=== PATIENT | male | born 1945 | race Caucasian/White ===

== ENCOUNTER 2023-04-13 06:27 | Day surgery (SDC) | payer MEDICARE, OTHER, SELFPAY ==
[2023-04-13 08:12] VITALS: BMI 26.6
[2023-04-13 08:15] VITALS: BP 103/62
[2023-04-13 08:31] VITALS: BMI 26.6
[2023-04-13 10:37] VITALS: BP 102/56
[2023-04-13 10:45] VITALS: BP 91/55
[2023-04-13 11:00] VITALS: BP 112/63
[2023-04-13 11:15] VITALS: BP 121/57
== END 2023-04-13 11:35 | disposition home or self-care (01) ==
LOC: GI 06:27
PROVIDERS: ATTENDING PHYSICIAN Internal Medicine Gastroenterology
DX: D12.3 Benign neoplasm of transverse colon (principal); D12.4 Benign neoplasm of descending colon; K64.8 Other hemorrhoids; K22.70 Barrett's esophagus without dysplasia; K57.10 Diverticulosis of small intestine without perforation or abscess without bleeding; K31.89 Other diseases of stomach and duodenum; Z86.010 Personal history of colon polyps
CPT/HCPCS: 45385; 45380; 43239; 88305

== ENCOUNTER → 2023-06-05 10:17 | Outpatient (REF) | payer MEDICARE, OTHER, SELFPAY | LOC: DHCBC HW 10:17 | PROVIDERS: ATTENDING PHYSICIAN Internal Medicine Cardiovascular Disease; FAMILY PHYSICIAN Family Medicine | DX: Z95.2 Presence of prosthetic heart valve (principal); I25.5 Ischemic cardiomyopathy | CPT/HCPCS: 93306 ==

== ENCOUNTER 2023-07-24 03:14 | Observation (INO) | payer MEDICARE, OTHER, SELFPAY ==
[2023-07-23 18:33] VITALS: BP 147/98
[2023-07-23 19:04] LABS: % Basophils 0.8 % (0-2); % Eosinophils 0.4 % (0-6); % Immature Granulocytes 0.4 % (0-0.5); % Lymphocytes 28.4 % (20.5-51.1); % Monocytes 13.7 % (1.7-9.3); % Neutrophils 56.3 % (42.2-75.2); Absolute Lymphocytes 1.4 10^3/uL (1.2-3.4); Absolute Monocytes 0.7 10^3/uL (0.1-0.6); Absolute Neutrophils 2.8 10^3/uL (1.4-6.5); Hemoglobin 15.3 g/dL (13.0-18.0); Mean Corp Hgb Conc. 34.8 g/dL (33.0-37.0); Mean Corpuscular Hgb 34.7 pg (27.0-31.0); Mean Corpuscular Volume 99.8 fL (80.0-94.0); Mean Platelet Volume 11.5 fL (7.4-10.4); Nucleated Red Blood Cells % 0 % (-); Platelet Count 134 10^3/uL (130-400); Red Blood Cell Count 4.41 10^6/uL (4.70-6.10); Red Cell Dist. Width 12.9 % (11.5-14.5); White Blood Cell Count 4.9 10^3/uL (4.8-10.8)
[2023-07-23 19:22] LABS: ALT (SGPT) 38 U/L (0-50); AST (SGOT) 69 U/L (17-59); Albumin 4.4 g/dl (3.5-5.0); Alkaline Phosphatase 59 U/L (38-126); Blood Urea Nitrogen 23 mg/dl (9-20); Calcium 9.4 mg/dl (8.4-10.2); Carbon Dioxide 22 mmol/L (22-30); Chloride 100 mmol/L (98-107); Glucose 127 mg/dl (70-99); Potassium 3.9 mmol/L (3.5-5.1); Sodium 136 mmol/L (135-145); Total Bilirubin 1.1 mg/dl (0.2-1.3); Total Protein 7.2 g/dl (6.3-8.2); eGFR > 60.00
[2023-07-23 22:12] VITALS: BP 145/101
[2023-07-23] MEDS: NSS 1000 IV (23:57)
[2023-07-23] MEDS: DUONEB 3 ML INH (23:58)
[2023-07-23] MEDS: DECADRON 20 MG IV (23:58)
[2023-07-24] VITALS (8 sets, daily range): BP systolic 105–177; BP diastolic 56–76; PULSE 83–94; BMI 24.4; BMI 25.2
--- NOTE | 2023-07-24 00:05 | ED.GENMED ---
History of Present Illness
General
Chief Complaint: Breathing Problem
Source: patient
Exam Limitations: none
Time Seen by Provider: 07/23/23 23:27
Travel History
Have you had any contact with someone who has COVID-19?: No
Do you have any symptoms of coronavirus? Fever > 100 degrees, chills, cough, shortness of breath, sore throat, loss of taste or smell, muscle aches, or headache?: No
History of Present Illness
History of Present Illness:
This is a 78 year old male that comes in with c/o SOB> States that last Sunday he started with a cold. Staet that it kept getting worse and worse and Sunday was the worse. States that his PCP put him on a Z-pack and Tessalon Pearls for the
cough. States that he has a headache from coughing. States that it seems to be a little less today. States that he is still wheezing and he started to feel dizzy. States that he is SOB going from one room to the other. States that he had chills,
SOB, Diarrhea, headache, lightheadedness. Denies any fever, chest pain, abd pain, nausea, vomiting, urinary burning.
Past History
Past History
ED Past Medical History: CAD, HTN, Hypercholesterolemia and Other (kidney stone, sleep apnea, Back and neck pain, LBBB, Bowel obstruction)
ED Past Surgical History: Appendectomy, Cardiac (CABG, Valve replacement), Cholecystectomy, Orthopedic (Right hip replacement), Tonsilectomy and Other (Umbilical hernia repair, Cataracts, Throat and sinus surgery)
Social History
Tobacco: Non-smoker
Alcohol: None
Drug: None
Personal:
Living: with family
Employment: Employed (insurance sales)
Family History
Family History: Hypertension
Review of Systems
Review of Systems
All Other Systems: ROS reviewed and negative except as documented in HPI and ROS
Constitutional: Reports chills; Denies fever
EENT: Reports no symptoms
Respiratory: Reports cough, trouble breathing and other (Wheezing)
Cardiac: Reports no symptoms; Denies chest pain
ABD/GI: Reports diarrhea; Denies abdominal pain, nausea or vomiting
: Reports no symptoms; Denies dysuria, frequency or urgency
Musculoskeletal: Reports no symptoms
Skin: Reports no symptoms
Neurological: Reports dizzy (Lightheaded) and headache (Slight)
Psychiatric: Reports no symptoms
Phy Exam
General Physical Exam
General Presentation: no apparent distress
General age: appears stated age
General Skin: warm and dry
General Habitus: elderly
General Mental: alert
General Hydration: appears well hydrated
ENT Exam
ENT Exam: TM's normal, pharynx normal and neck supple
Eye Exam
Eye Exam: EOMI
Cardiovascular Exam
Cardiovascular Exam: regular rate/rhythm, no edema and normal peripheral pulses
Pulmonary Exam
Pulmonary Exam: no respiratory distress, no rales, chest non tender, no crackles, no rhonchi and other (Dry cough noted with Insp and exp wheezing throughout)
Gastrointestinal Exam
Gastrointestinal Exam: normal bowel sounds, non tender, soft, no organomegaly, no pulsatile mass and non distended
Musculoskeletal Exam
Musculoskeletal Exam: full ROM and no edema
Skin Exam
Skin Exam: normal color, warm/dry, no rash and no petechia
Psychiatric Exam
Psychiatric Exam: normal mood/affect
Scores
Heart Failure Risk
Heart Failure Risk Score: Not Applicable
Course
Orders/Labs/Results
Orders:
Orders
07/23/23 18:37
Electrocardiogram (*1) Urgent
Reason for Study: Other
Other Reason for Exam: Respiratory Distress
EKG- Treatment ONCE
07/23/23 18:54
Complete Blood Count/With Diff Urgent
Comprehensive Metabolic Panel Urgent
07/23/23 22:11
Chest [CR Chest - 2 Views ] Urgent
Comment:
Reason For Exam: sob/hancock
07/23/23 23:41
0.9% Sodium Chloride 1000 ml [Nss] 1,000 ml IV BOLUS
Dexamethasone Sod Phosphate [Decadron] 20 mg IV NOW STA
Ipratropium/Albuterol Sulfate [Duoneb] 3 ml INH R NOW ONE
Abnormal Lab Results
07/23/23
18:54
RBC 4.41 L 10^6/uL
(4.70-6.10)
MCV 99.8 H fL
(80.0-94.0)
MCH 34.7 H pg
(27.0-31.0)
MPV 11.5 H fL
(7.4-10.4)
Absolute Monos (auto) 0.7 H 10^3/uL
(0.1-0.6)
Monocytes % 13.7 H %
(1.7-9.3)
BUN 23 H mg/dl
(9-20)
Glucose 127 H mg/dl
(70-99)
AST 69 H U/L
(17-59)
07/23/23 18:54
07/23/23 18:54
Dehydration. Glucose nonfasting. AST slightly elevated.
Vital Signs
Initial and Last Documented VS:
Initial Vital Signs
Temp Pulse Resp BP Pulse Ox
98.2 F 106 18 147/98 96
07/23/23 18:33 07/23/23 18:33 07/23/23 18:33 07/23/23 18:33 07/23/23 18:33
Last Documented Vital Signs
Temp Pulse Resp BP Pulse Ox
98.2 F 76 18 145/101 96
07/23/23 18:33 07/23/23 22:12 07/23/23 18:33 07/23/23 22:12 07/23/23 22:12
MDM/Problems Addressed
Differential Diagnosis Includes:
Wheezing, PNA
MDM/Problems Addressed:
This is a 78 year old male that comes in with c/o SOB. States that he started with a cold on Sunday and this continued to get worse. State that he is SOB going from one room to the next. States that he is wheezing and started to feel lightheaded.
Will get labs, Chest, Give Duo and Steroids and recheck.
Back into see patient. Patient continues with exp wheezing throughout. Patient becomes SOB just trying to sit up in bed. Will admit patient. Hospitalist notified.
Chronic conditions affecting care: CAD
Acute Exacerbation and/or Progression of Chronic Illness:
NA
*Pulse Oximetry
Patient hypoxic: no
*EKG
Interpreted by ED Provider?: Yes
Heart Rate: 102
Rate: tachycardiac
Rhythm: sinus
Cicero: left axis deviation
Interval: normal interval
QRS Pattern: left bundle branch block
Ischemia: no ischemia
*Pottery Decorator Interpretation
Rate: Pottery Decorator- N/A
*Critical Care Note
Total Time (30-74mins, 75-104mins- exclusive of procedures): Not Applicable
ED Attending Note
-
Portions of this chart may have been created with voice recognition software.� Occasional wrong word or��sound alike� substitutions may have occurred due to the inherent limitations of voice recognition software.
Discharge Plan
Departure
Patient Disposition: Admit
Date of Disposition: 07/24/23
Time of Disposition: 01:01
Admit to: Med/Surg
Presentation/result/management discussed w/ accepting MD/DO: Hospitalist
Patient with high blood pressure during this ER visit?: Yes
Condition: Good
Discharge Problem:
Bilateral wheezing, SOB (shortness of breath)
Prescriptions:
No Action
aspirin 81 MG tablet,delayed release (DR/EC)
81 mg PO DAILY
metoprolol succinate 100 MG tablet extended release 24 hr
100 mg PO DAILY
hydrochlorothiazide 25 MG tablet
25 mg PO DAILY
cholecalciferol (vitamin D3) [Vitamin D3] 50 mcg (2,000 unit) Capsule
50 mcg PO DAILY
Probiotic 10 billion cell Capsule
10,000 mmu cells PO DAILY
nitroglycerin 0.4 mg tablet, sublingual
0.4 mg sublingual [id number] PRN (Reason: chest pain) Qty: 25 5RF
pantoprazole 40 mg tablet,delayed release (DR/EC)
40 mg PO DAILY Qty: 90 10RF
atorvastatin 40 mg tablet
40 mg PO QPM Qty: 90 10RF
pyridoxine (vitamin B6) 100 mg Tablet
100 mg PO DAILY
mecobalamin (vitamin B12) 1,000 mcg Tablet,Disintegrating
1,000 mcg SUBLINGUAL DAILY
Bowel Prep
1 unit PO PER PROTOCOL
acetaminophen [Tylenol Ex Str Arthritis Pain] 500 mg Tablet
500 mg PO Q6H PRN (Reason: pain)
Referrals:
Marito Garner MD [Family Provider] -
Interventions
Interventions:
*Risk Screen - Suicide Last Done: 07/23/23 18:33
*General Assessment Last Done: 07/23/23 18:33
*Neglect/Abuse Screening Last Done: 07/23/23 18:33
ED- Fall Risk Assessment Last Done: 07/23/23 22:10
*ED COVID-19 Vaccine History Last Done: 07/23/23 18:33
ED- Cardiac Assessment Last Done: 07/23/23 22:10
ED- Pulmonary Assessment Last Done: 07/23/23 22:10
Discharge Date and Time
Print Language: CROATIAN
[2023-07-24 01:36] LABS: COVID-19 Antigen Negative (Negative)
--- NOTE | 2023-07-24 02:55 | HPS.HSE ---
Family Physician
-
Family Physician: Marito Garner
Chief Complaint
-
Cough / Dizziness
History of Present Illness
Patient is a 78y M with PMH significant for ASCVD, s/p TAVR and hypertension who presents to ED complaining of cough, headache and fatigue. Patient states that he started with cough and headache on Sunday. His symptoms worsened over the
next few days and he was seen by his PCP. Was was prescribed azithromycin and benzonatate and states that his symptoms (cough and headache) seemed to gradually improve.
Today, patient noted that he felt lightheaded / dizzy for much of the day. He felt increasingly SOB.
Patient notes that he felt 'warm' and had muscle aches / pain all over.
He was seen again at his PCP office today and was referred to the ED for further evaluation.
Work-up in the ED has been largely unremarkable; however, patient continues to feel dyspneic and complains of lightheaded sensation.
Medical History
Past Medical History
Past Medical History: Reports Other
Additional Past Medical History:
ASCVD
Hypertension
Aortic Stenosis
Chronic HFpEF
LEANNA
Past Surgical History: Reports Other
Additional Past Surgical History:
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
TAVR
T&A
Cholecystectomy
Right APRIL
Cystoscopy / Stent
Cataracts
Social History
Tobacco: Former Smoker (Quitsmoking at age 31. < 10 pack years total.)
Alcohol: None
Drug: None
Family History
Family History: Not pertinent
Allergies / Home Medications
Allergies reflects when Allergies were last updated in [facility].
Home Medications with original date entered in [facility]
Allergy/Medication List:
Allergies
Allergy/AdvReac Type Severity Reaction Status Date / Time
No Known Allergies Allergy Verified 07/23/23 18:32
Home Medications
aspirin 81 mg tablet,delayed release 81 mg PO DAILY Blood clot prevention/tx 05/10/15
hydrochlorothiazide 25 mg tablet 25 mg PO DAILY Fluid retention/Swelling 05/10/15
metoprolol succinate 100 mg tablet,extended release 24 hr 100 mg PO DAILY Blood pressure 05/10/15
atorvastatin 40 mg tablet 40 mg PO QPM #90 tabs 01/25/22
cholecalciferol (vitamin D3) 50 mcg (2,000 unit) capsule (Vitamin D3) 50 mcg PO DAILY Supplement 01/25/22
mecobalamin (vitamin B12) 1,000 mcg disintegrating tablet,sublingual 1,000 mcg sublingual DAILY Supplement 03/13/22
pyridoxine (vitamin B6) 100 mg tablet 100 mg PO DAILY Supplement 03/13/22
sacubitril 24 mg-valsartan 26 mg tablet (Entresto) See Rx Instructions .Route .COMPLEX 07/24/23
Review of Systems
-
History Source: Patient
A 12 point ROS was completed and negative except as noted: Yes
Constitutional: Reports Fever, Fatigue and Chills
EENT: Denies Sore Throat
Respiratory: Reports Cough and Trouble Breathing
Cardiac: Denies Chest Pain, Diaphoresis, Palpitations or Syncope
Abdomen/GI: Reports Diarrhea; Denies Abdominal Pain, Nausea, Vomiting, Bloody Stools or Black Stools
: Denies Dysuria or Frequency
Musculoskeletal: Reports Muscle Pain; Denies Joint Pain or Edema
Neurological: Reports Dizzy and Headache
Psych: Denies Depression or Anxiety
Physical Exam
Vital Signs
Vital Signs
Temp Pulse Resp BP Pulse Ox
98.2 F 76 18 145/101 96
07/23/23 18:33 07/23/23 22:12 07/23/23 18:33 07/23/23 22:12 07/23/23 22:12
Physical Exam
General: Other (78y M in no acute distress.)
HEENT: Moist mucous membranes and PERRLA
Respiratory: Other (Coarse breath sounds scattered throughout. )
Cardiac: S1/S2 and Regular Rhythm; No Murmur
GI: Soft, Non Tender, Non Distended and Normal Bowel Sounds
Musculoskeletal: No Clubbing, No Cyanosis, No Edema and Other (Varicose veins.)
Neuro: AO x 3
Laboratory Results
-
07/23/23 18:54
07/23/23 18:54
Laboratory Results
Total Bilirubin 1.1 mg/dl (0.2-1.3) 07/23/23 18:54
AST 69 U/L (17-59) H 07/23/23 18:54
ALT 38 U/L (0-50) 07/23/23 18:54
Alkaline Phosphatase 59 U/L (38-126) 07/23/23 18:54
Impression/Plan
-
A/P: Patient is a 78y M with PMH significant for ASCVD, TAVR and hypertension who presents to ED complaining of lightheadedness and SOB today.
Bronchitis
- Observe overnight for further evaluation and treatment.
- Coarse breath sounds on exam with cough, subjective fever, etc.
- CXR unremarkable. Afebrile, no leukocytosis, etc.
- PO doxycycline.
- Supportive care with nebs, mucolytics, chest PT, etc.
- Follow for clinical improvement.
- Consider additional imaging and / or Pulm evaluation if symptoms do not improve.
ASCVD
Aortic Stenosis s/p TAVR
Chronic HFpEF
- Stable. No chest pain. No evidence of volume overload on exam.
- Continue current CV med regimen including Entresto.
- Follow I/Os, daily weights, etc.
Benign Hypertension
- Stable. Continue home regimen with holding parameters.
DVT Prophylaxis: Lovenox
Code Status: Full
[2023-07-24 05:45] LABS: Hematocrit 37.1 % (39.0-52.0); Hemoglobin 12.9 g/dL (13.0-18.0); Mean Corp Hgb Conc. 34.8 g/dL (33.0-37.0); Mean Corpuscular Hgb 34.1 pg (27.0-31.0); Mean Corpuscular Volume 98.1 fL (80.0-94.0); Mean Platelet Volume 11.9 fL (7.4-10.4); Platelet Count 114 10^3/uL (130-400); Red Blood Cell Count 3.78 10^6/uL (4.70-6.10); Red Cell Dist. Width 12.9 % (11.5-14.5)
[2023-07-24 06:10] LABS: Blood Urea Nitrogen 25 mg/dl (9-20); Calcium 8.4 mg/dl (8.4-10.2); Carbon Dioxide 21 mmol/L (22-30); Chloride 103 mmol/L (98-107); Glucose 173 mg/dl (70-99); Potassium 3.4 mmol/L (3.5-5.1); Sodium 135 mmol/L (135-145); eGFR > 60.00
--- NOTE | 2023-07-24 08:04 | W.PN.HOSP.TC ---
Addendum entered and electronically signed by Jennifer Santiago MD 07/24/23 10:34:
Patient was made aware about the hemoglobin A1c 6.8. He states that he does not have diabetes. Reviewed that his hemoglobin A1c was 7.9 in 2021. His last A1c being 6.4 means he may need diet control only, which I also explained to him.
He is on steroids therefore we will check Accu-Cheks
Patient states that he is upset with the fact that he was told he has diabetes.
Original Note:
Today's Communication/Plan
-
Continue doxycycline, steroids, nebulizer treatments
Assessment / Plan
Assessment / Plan
78-year-old male with cough and dizziness patient had seen his PCP who prescribed him Zithromax and benzonatate and it started to improve. Patient felt lightheaded and dizzy and came to the ER. He states that he usually gets sinus drainage during
eating and coughs. He uses a nasal inhaler which the will bring.
On examination awake and alert not in any acute distress able to speak in sentences
Cardiovascular system S1-S2 appreciated
Chest rhonchi on the right side
Abdomen soft and nontender
No pedal edema
# Acute bronchitis
Doxycycline, neb treatments, mucolytic's
If the patient can bring the inhaler we will order it-he states he does not use Flonase as it dries him too much.
Not hypoxic at present
# Mild thrombocytopenia and leukopenia-watch
# Mild hypokalemia-replace
# Elevated blood sugars-history of diabetes. Check hemoglobin A1c
Watch sugars with steroids
# ASCVD-EKG unchanged-continue ASA/beta-roel/valsartan/statin
History of CABG 2008
# History of aortic stenosis status post TAVR
# Chronic heart failure with preserved ejection fraction-metoprolol, Entresto
# Hypertension-continue metoprolol, hydrochlorothiazide, Entresto
# Hyperlipidemia-continue statin
# History of Salmonella sepsis
# Chronic left bundle branch block
# Osteoarthritis/spinal stenosis/avascular necrosis
# History of nephrolithiasis
# Sleep apnea-CPAP intolerant
# Ex-smoker
# DVT prophylaxis-Lovenox
# Full code
Anticipated Discharge: Within 24 hours
Subjective/Interval History
-
Date of Service: July 24, 2023
Objective Data
-
Labs:
Laboratory Results
07/24/23
05:33
WBC 3.0 L
Hgb 12.9 L
Hct 37.1 L
Plt Count 114 L
Sodium 135
Potassium 3.4 L
Chloride 103
Carbon Dioxide 21 L
BUN 25 H
Creatinine 0.7
Glucose 173 H
Calcium 8.4
Vital Signs:
Vital Signs
Temp Pulse Resp BP Pulse Ox
98.2 F 88 24 135/72 96
07/23/23 18:33 07/24/23 07:00 07/24/23 07:00 07/24/23 05:30 07/24/23 07:00
[2023-07-24] MEDS: ASPIR LOW (ENTERIC COATED) 81 MG PO (08:57)
[2023-07-24] MEDS: DELTASONE 40 MG PO (08:58)
[2023-07-24] MEDS: TOPROL XL 100 MG PO (08:59)
[2023-07-24] MEDS: VIBRAMYCIN 100 MG PO ×2 (08:59→19:59)
[2023-07-24] MEDS: ENTRESTO 24 MG/26 MG 1 TAB PO ×2 (08:59→19:59)
[2023-07-24] MEDS: KCL 40 MEQ PO (09:00)
[2023-07-24] MEDS: MUCINEX 1200 MG PO ×2 (09:00→19:59)
[2023-07-24 10:09] LABS: Glycohemoglobin (HgbA1c) 6.8 % (4.0-5.6)
[2023-07-24 10:19] LABS: Troponin I 0.039 ng/ml
--- NOTE | 2023-07-24 10:31 | EDRN ---
Notified hospitalist about elevated troponin.
[2023-07-24 10:37] LABS: Glucose - Point of Care 177 mg/dl (70-99)
[2023-07-24] MEDS: DUONEB 3 ML INH (12:54)
[2023-07-24 15:32] LABS: Troponin I 0.039 ng/ml
--- NOTE | 2023-07-24 16:49 | PTCARENOTE ---
Patient came to unit at about 2pm. He is alert and oriented X4, denies SOB, chest pain, nausea and vomiting. On assessment he is observed coughing with no production of sputum noted. His lungs are diminished on the anterior right upper and lower
lobes but clear on the left lobes. Respiration is even and unlabored. Positive bowl sound X4 quadrant. No edema noted thus far. Skin is dry and intact. Admission assessment complected with patient and his at bed side. Will continue to monitor.
[2023-07-24] MEDS: LOVENOX 40 MG SC (17:41)
[2023-07-24] MEDS: LIPITOR 40 MG PO (17:42)
[2023-07-25 03:45] VITALS: BP 121/83
[2023-07-25 05:42] VITALS: BMI 25.3
[2023-07-25 06:50] LABS: Blood Urea Nitrogen 25 mg/dl (9-20); Calcium 8.5 mg/dl (8.4-10.2); Carbon Dioxide 24 mmol/L (22-30); Chloride 106 mmol/L (98-107); Estimated Creatinine Clearance 106 ml/min; Glucose 161 mg/dl (70-99); Potassium 4.4 mmol/L (3.5-5.1); Sodium 137 mmol/L (135-145); eGFR > 60.00
[2023-07-25 07:00] VITALS: BP 108/68
[2023-07-25 07:34] LABS: Glucose - Point of Care 151 mg/dl (70-99)
[2023-07-25] MEDS: TOPROL XL 100 MG PO (08:36)
[2023-07-25] MEDS: ASPIR LOW (ENTERIC COATED) 81 MG PO (08:36)
[2023-07-25] MEDS: ENTRESTO 24 MG/26 MG 1 TAB PO (08:36)
[2023-07-25] MEDS: MUCINEX 1200 MG PO (08:36)
[2023-07-25] MEDS: VIBRAMYCIN 100 MG PO (08:36)
[2023-07-25] MEDS: DELTASONE 40 MG PO (08:36)
[2023-07-25 11:00] VITALS: BP 111/55
--- NOTE | 2023-07-25 12:02 | CM ---
Patient seen bedside, initial assessment completed. Patient resides with his in a two story home, three steps to enter. Patient denies DME, VN two years ago, unsure with who, denies SNF. Patient confirms PCP Marito Garner, [facility] in
[place], confirms prescription coverage. Patient denies food insecurities.
LIVE status reviewed, signed, placed in patients chart. Patient inquiring if he will be switched to inpatient status and what medical requirements make a patient inpatient status, TT sent to CM. CM will continue to follow for all discharge
planning needs.
Plan; home no needs anticipated.
[2023-07-25 12:06] VITALS: BP 108/55; BP 111/55; BP 117/64; PULSE 75; PULSE 78; PULSE 83
[2023-07-25 12:21] LABS: Glucose - Point of Care 166 mg/dl (70-99)
--- NOTE | 2023-07-25 14:51 | W.PN.HOSP.TC ---
Today's Communication/Plan
-
Discharge home with inhaler, AB , mucolytics, Acapella
Sputum CX to be sent before discharge if we can obtain.
Assessment / Plan
Assessment / Plan
78-year-old male with cough and dizziness patient had seen his PCP who prescribed him Zithromax and benzonatate and it started to improve. Patient felt lightheaded and dizzy and came to the ER. He states that he usually gets sinus drainage during
eating and coughs. He uses a nasal inhaler which the will bring.
On examination awake and alert not in any acute distress able to speak in sentences, cough
Cardiovascular system S1-S2 appreciated
Chest few scattered exp short rhonchi
Abdomen soft and nontender
No pedal edema
# Acute bronchitis
Doxycycline, neb treatments, mucolytic's
Continue his nasal inhaler
Not hypoxic at present, sats 96% with ambulation
Chest x-ray finding discussed with patient and
Repeat x-ray in 4 to 6 weeks discussed
Acapella ordered yesterday, pt doesn't have at bed side- Nursing to provide.
# Mild thrombocytopenia and leukopenia-likely all started as a viral infection which is likely the reason for
# Mild hypokalemia-replaced
# Elevated blood sugars-history of diabetes. Hemoglobin A1c 6.8
Patient aware able to follow-up with Dr. Grayson
Long discussion. We discussed about his diet he states that he eats a little bit more carbs and orders needed but he is trying to cut back. He does not eat any sweets or desserts.
He asked if should patient be taking medicine so he does not get worse. His sister had gangrene of the toe. We discussed that he can take metformin if he wants or he can watch with diet alone since the A1c is only 6.8. He is interested in getting
a prescription for metformin and then make a decision whether he wants to use it or not. Side effects discussed
# ASCVD-EKG unchanged-continue ASA/beta-roel/valsartan/statin
History of CABG 2008
# History of aortic stenosis status post TAVR
# Chronic heart failure with preserved ejection fraction-metoprolol, Entresto
# Hypertension-continue metoprolol, hydrochlorothiazide, Entresto
# Hyperlipidemia-continue statin
# History of Salmonella sepsis
# Chronic left bundle branch block
# Osteoarthritis/spinal stenosis/avascular necrosis
# History of nephrolithiasis
# Sleep apnea-CPAP intolerant
# Ex-smoker
# DVT prophylaxis-Lovenox
# Full code
All questions answered.
He will follow up with and .
Sent a text to both re his hospital stay.
D/W RN
Anticipated Discharge: Today
Subjective/Interval History
-
Date of Service: July 25, 2023
Objective Data
-
Labs:
Laboratory Results
07/25/23
05:18
Sodium 137
Potassium 4.4 D
Chloride 106
Carbon Dioxide 24
BUN 25 H
Creatinine 0.6 L
Glucose 161 H
Calcium 8.5
Vital Signs:
Vital Signs
Temp Pulse Resp BP Pulse Ox
98.0 F 75 17 111/55 94
07/25/23 11:00 07/25/23 11:00 07/25/23 11:00 07/25/23 11:00 07/25/23 11:00
I&O
07/24/23 07/25/23 07/26/23
06:59 06:59 06:59
Intake Total 960 / 960
Balance 960 / 960
[2023-07-25 15:00] VITALS: BP 127/69
--- NOTE | 2023-07-25 15:08 | W.DS.TRANS ---
Addendum entered and electronically signed by Jennifer Santiago MD 07/26/23 13:29:
Dictation- [id number]
Original Note:
DC Summary - [employer]
-
Discharge Instructions:
Discharge Diagnosis/Procedures Acute bronchitis, hemoglobin A1c 6.8, ASCVD,
history of TAVR, chronic heart failure,
hypertension, high cholesterol, left bundle
branch block, arthritis,
Diet 2 Gram Sodium
Additional Diets No concentrated sugars, low-carb diet
Activity As tolerated,With assistance
Driving Restrictions As prior to admission
Instructions:
Stand-Alone Forms:
Changes to Home Medications: Yes
Discharge Medications:
DC Medications w/original date entered in [facility]
aspirin 81 mg tablet,delayed release 81 mg PO DAILY Blood clot prevention/tx 05/10/15
hydrochlorothiazide 25 mg tablet 25 mg PO DAILY Fluid retention/Swelling 05/10/15
metoprolol succinate 100 mg tablet,extended release 24 hr 100 mg PO DAILY Blood pressure 05/10/15
cholecalciferol (vitamin D3) 50 mcg (2,000 unit) capsule (Vitamin D3) 50 mcg PO DAILY Supplement 01/25/22
pyridoxine (vitamin B6) 100 mg tablet 100 mg PO DAILY Supplement 03/13/22
Lactobac no.2-Bifidobac no.1-S. thermo 112.5 billion cell capsule (Visbiome) 1 cap PO DAILY Gastrointestinal Issue 07/24/23
acetaminophen 325 mg tablet (Tylenol) 650 mg PO Q4HPRN PRN headaches 07/24/23
benzonatate 200 mg capsule 200 mg PO BIDPRN PRN cough 07/24/23
cyanocobalamin (vitamin B-12) 1,000 mcg tablet 1,000 mcg PO DAILY Supplement 07/24/23
pantoprazole 40 mg tablet,delayed release (Protonix) 40 mg PO DAILY Gastrointestinal Issue 07/24/23
sacubitril 49 mg-valsartan 51 mg tablet (Entresto) 1 tab PO BID Heart Disease/Condition 07/24/23
albuterol sulfate 90 mcg/actuation aerosol inhaler 2 puff inhalation Q6H PRN shortness of breath or wheezing #8.5 grams 07/25/23
atorvastatin 40 mg tablet 40 mg PO QPM High cholesterol #90 tabs 07/25/23
blood sugar diagnostic (Contour Next Test Strips) #200 ea 07/25/23
blood-glucose meter (Contour Next One Meter) #1 ea 07/25/23
doxycycline hyclate 100 mg capsule 100 mg PO Q12 Lung/breathing issues #10 caps 07/25/23
guaifenesin 600 mg tablet, extended release 12 hr 1,200 mg (2 x 600 mg) PO Q12 Lung/breathing issues #0 tabs 07/25/23
lancets 21 gauge (Color Lancets) #200 ea 07/25/23
metformin 500 mg tablet 500 mg PO DAILY Diabetes #30 tabs 07/25/23
prednisone 10 mg tablet See Rx Instructions .Route .COMPLEX Lung/breathing issues #30 tabs 07/25/23
Home Medication Changes
new
blood sugar diagnostic (Contour Next Test Strips) #200 ea 07/25/23
blood-glucose meter (Contour Next One Meter) #1 ea 07/25/23
doxycycline hyclate 100 mg capsule 100 mg PO Q12 Lung/breathing issues #10 caps 07/25/23
guaifenesin 600 mg tablet, extended release 12 hr 1,200 mg (2 x 600 mg) PO Q12 Lung/breathing issues #0 tabs 07/25/23
lancets 21 gauge (Color Lancets) #200 ea 07/25/23
metformin 500 mg tablet 500 mg PO DAILY Diabetes #30 tabs 07/25/23
prednisone 10 mg tablet See Rx Instructions .Route .COMPLEX Lung/breathing issues #30 tabs 07/25/23
Pending Results: No
== END 2023-07-25 16:06 | disposition home or self-care (01) ==
LOC: 4 WEST ACU 03:14
PROVIDERS: Clinical Nurse Specialist Family Health; Emergency Medicine; ADMITTING PHYSICIAN Hospitalist; ATTENDING PHYSICIAN Hospitalist; EMERGENCY PHYSICIAN Emergency Medicine; FAMILY PHYSICIAN Family Medicine
DX: J20.9 Acute bronchitis, unspecified (principal); R06.02 Shortness of breath; R19.7 Diarrhea, unspecified; R68.83 Chills (without fever); J98.11 Atelectasis; R51.9 Headache, unspecified; I25.10 Atherosclerotic heart disease of native coronary artery without angina pectoris; I11.0 Hypertensive heart disease with heart failure; R53.83 Other fatigue; R06.03 Acute respiratory distress; R00.0 Tachycardia, unspecified; G47.33 Obstructive sleep apnea (adult) (pediatric); I50.32 Chronic diastolic (congestive) heart failure; I35.0 Nonrheumatic aortic (valve) stenosis; R06.09 Other forms of dyspnea; I70.0 Atherosclerosis of aorta; M19.90 Unspecified osteoarthritis, unspecified site; D69.6 Thrombocytopenia, unspecified; R73.9 Hyperglycemia, unspecified; E87.6 Hypokalemia; E78.00 Pure hypercholesterolemia, unspecified; I44.7 Left bundle-branch block, unspecified; M54.2 Cervicalgia; Z87.19 Personal history of other diseases of the digestive system; Z87.442 Personal history of urinary calculi; Z95.1 Presence of aortocoronary bypass graft; Z90.49 Acquired absence of other specified parts of digestive tract; Z95.2 Presence of prosthetic heart valve; Z96.641 Presence of right artificial hip joint; Z82.49 Family history of ischemic heart disease and other diseases of the circulatory system; Z79.82 Long term (current) use of aspirin; Z11.52 Encounter for screening for COVID-19; Z87.891 Personal history of nicotine dependence
CPT/HCPCS: 71046; 80048; 80053; 82962; 83036; 84484; 85025; 85027; 87070; 87205; 87502; 87811; 93005; 94640; 96361; 96374; 99285; G0378

== ENCOUNTER → 2023-11-21 16:26 | Outpatient (REF) | payer MEDICARE, OTHER, SELFPAY | LOC: PAVMRI 16:26 | PROVIDERS: ATTENDING PHYSICIAN Physician Assistant Surgical; FAMILY PHYSICIAN Family Medicine | DX: M54.16 Radiculopathy, lumbar region (principal); M54.50 Low back pain, unspecified | CPT/HCPCS: 72148 ==

== ENCOUNTER → 2023-12-27 12:21 | Outpatient (REF) | payer MEDICARE, OTHER, SELFPAY | LOC: HWRAD 12:21 | PROVIDERS: ATTENDING PHYSICIAN Psychiatry & Neurology Neurology; FAMILY PHYSICIAN Family Medicine | DX: M54.14 Radiculopathy, thoracic region (principal) | CPT/HCPCS: 72072 ==

== ENCOUNTER 2024-03-12 07:04 | Day surgery (SDC) | payer MEDICARE, OTHER, SELFPAY | END 2024-03-12 09:19 | disposition home or self-care (01) | LOC: CATH 07:04 | PROVIDERS: ATTENDING PHYSICIAN Internal Medicine; FAMILY PHYSICIAN Family Medicine; OTHER PHYSICIAN Internal Medicine Cardiovascular Disease | DX: I08.3 Combined rheumatic disorders of mitral, aortic and tricuspid valves (principal); I48.91 Unspecified atrial fibrillation; I44.7 Left bundle-branch block, unspecified; I11.0 Hypertensive heart disease with heart failure; I50.32 Chronic diastolic (congestive) heart failure; E78.5 Hyperlipidemia, unspecified; E11.9 Type 2 diabetes mellitus without complications; K21.9 Gastro-esophageal reflux disease without esophagitis; G47.33 Obstructive sleep apnea (adult) (pediatric); Z87.891 Personal history of nicotine dependence; Z79.01 Long term (current) use of anticoagulants; Z79.84 Long term (current) use of oral hypoglycemic drugs | CPT/HCPCS: 93312; 93320; 93325; 92960; 93005 ==

== ENCOUNTER → 2024-03-17 11:44 | Outpatient (REF) | payer MEDICARE, OTHER, SELFPAY ==
[2024-03-17 15:56] LABS: % Basophils 1.1 % (0-2); % Eosinophils 0.5 % (0-6); % Immature Granulocytes 3.8 % (0-0.5); % Lymphocytes 24.1 % (20.5-51.1); % Monocytes 8.7 % (1.7-9.3); % Neutrophils 61.8 % (42.2-75.2); Absolute Basophils 0.1 10^3/uL (0-0.2); Absolute Immature Granulocytes 0.3 10^3/uL (0-0.05); Absolute Lymphocytes 1.8 10^3/uL (1.2-3.4); Absolute Monocytes 0.6 10^3/uL (0.1-0.6); Absolute Neutrophils 4.5 10^3/uL (1.4-6.5); Hematocrit 46.9 % (39.0-52.0); Hemoglobin 15.3 g/dL (13.0-18.0); Mean Corp Hgb Conc. 32.6 g/dL (33.0-37.0); Mean Corpuscular Hgb 35.6 pg (27.0-31.0); Mean Corpuscular Volume 109.1 fL (80.0-94.0); Nucleated Red Blood Cells % 0 % (-); Red Cell Dist. Width 17.2 % (11.5-14.5); White Blood Cell Count 7.3 10^3/uL (4.8-10.8)
[2024-03-17 16:03] LABS: Albumin 4.2 g/dl (3.5-5.0); Blood Urea Nitrogen 27 mg/dl (9-20); Calcium 9.2 mg/dl (8.4-10.2); Carbon Dioxide 26 mmol/L (22-30); Chloride 101 mmol/L (98-107); Glucose 126 mg/dl (70-99); Phosphorus 3.8 mg/dl (2.5-4.5); Potassium 4.5 mmol/L (3.5-5.1); Sodium 139 mmol/L (135-145); eGFR > 60.00
[2024-03-17 16:19] LABS: Mean Platelet Volume 12.9 fL (7.4-10.4); Platelet Count 113 10^3/uL (130-400)
== END ==
LOC: HWLAB 11:44
PROVIDERS: ATTENDING PHYSICIAN Internal Medicine Cardiovascular Disease; FAMILY PHYSICIAN Family Medicine
DX: I25.10 Atherosclerotic heart disease of native coronary artery without angina pectoris (principal); R06.09 Other forms of dyspnea; I44.7 Left bundle-branch block, unspecified
CPT/HCPCS: 36415; 71046; 80069; 85025

== ENCOUNTER → 2024-03-19 11:11 | Outpatient (REF) | payer MEDICARE, OTHER, SELFPAY | LOC: DHCBC/DCA 11:11 | PROVIDERS: ATTENDING PHYSICIAN Internal Medicine Cardiovascular Disease; FAMILY PHYSICIAN Family Medicine | DX: R06.02 Shortness of breath (principal); R53.83 Other fatigue; Z95.2 Presence of prosthetic heart valve; I25.10 Atherosclerotic heart disease of native coronary artery without angina pectoris | CPT/HCPCS: 78452; 93017; A9500; J2785 ==

== ENCOUNTER → 2024-03-22 10:12 | Outpatient (REF) | payer MEDICARE, OTHER, SELFPAY | LOC: RCS 10:12 | PROVIDERS: ATTENDING PHYSICIAN Internal Medicine Cardiovascular Disease; FAMILY PHYSICIAN Family Medicine | DX: R06.09 Other forms of dyspnea (principal); R53.83 Other fatigue; Z95.2 Presence of prosthetic heart valve; I25.10 Atherosclerotic heart disease of native coronary artery without angina pectoris | CPT/HCPCS: 93306 ==

== ENCOUNTER 2024-04-18 06:07 | Day surgery (SDC) | payer MEDICARE, OTHER, SELFPAY ==
[2024-04-18] VITALS (14 sets, daily range): BP systolic 112–166; BP diastolic 50–135; BMI 24.4
[2024-04-18 08:39] LABS: ACT-LR - POC 363 Seconds (116-155)
[2024-04-18 09:00] LABS: ACT-LR - POC 350 Seconds (116-155)
[2024-04-18 09:25] LABS: ACT-LR - POC 390 Seconds (116-155)
--- NOTE | 2024-04-18 09:56 | ITS.CL.ABL ---
Javascript Programmer - Ablation
Ablation
Procedure Report:
AFIB / A flutter ablation:
Mr. Kumar is a very pleasant 79 yr old gentleman with medical history significant for symptomatic persistent atrial fibrillation is here in the EP lab for atrial fibrillation / flutter ablation
Date of Procedure:
04/18/2024
Indications:
Symptomatic persistent atrial fibrillation
Pre-Operative Diagnosis:
Persistent atrial fibrillation
Post-Operative Diagnosis:
Persistent atrial fibrillation
Procedure Performed:
Atrial fibrillation ablation with wide area circumferential ablation (WACA) approach for pulmonary vein isolation
Posterior wall isolation
Performing Physician:
John Alfaro MD
Assistants:
EP staff
Anesthesia:
See anesthesia records
Detailed Description of the Procedure:
Written informed consent was obtained from the patient after a full explanation of the risks and benefits of the procedure including the risks of sedation and anesthesia.
The patient was brought to the electrophysiology laboratory in stable condition in fasting state. Continuous electrocardiographic and hemodynamic monitoring was initiated.
The initial rhythm was atrial fibrillation.
The procedure site was meticulously prepared with surgical scrub and allowed to dry with no pooling. Sterile draping was applied to cover the procedure site. The image intensifier was draped with sterile bag and positioned over the patient. After
infusion of local anesthetic, vascular access was obtained under ultrasound guidance and sheaths were placed over guide wire as detailed below.
The images of the ultrasound of the femoral vessels were stored in patient chart.
Sheath and Catheter Placement:
In the right femoral vein, an 8-Yakut sheath was placed under ultrasound guidance for use during the ablation procedure. And mapping catheter was intermittently placed in the high right atrium, right ventricle, left atrium and left ventricle. In
the left femoral vein, a 9-Fr long sheath was placed for use during intracardiac echo procedure.
The sheaths were upgraded as needed during the case. Intracardiac catheters were positioned using direct fluoroscopic guidance.� ICE catheter was placed in RA. The following catheters / sheaths were placed
Sheaths:
��������� Agilis sheath in right femoral vein upgraded from 8Fr in right femoral vein
��������� 9Fr in left femoral vein
Catheters:
��������� The Affera Sphere 9 catheter -bidirectional D/F� - at locations of HRA, RV, LA and LV.
��������� ICE catheter -AccuNav -� at locations of RA, SVC, and RV.
��������� Bard decapolar catheter � RA and CS
Heparin was initiated after the access was obtained.
Intracardiac ECHO:
An 8-Yakut AcuNav intracardiac ECHO (ICE) probe was advanced through the 9-Yakut sheath in the left femoral vein into the right atrium under fluoroscopic and ICE ultrasound image guidance and a baseline ECHO study was performed. The left atrial
size was dilated. There was trace tricuspid regurgitation. The aortic valve was grossly normal. There was mild to moderately reduced left ventricular systolic function. There is no pericardial effusion. The MICHELLE has baseline low velocities. The
pulmonary had good flow identified.
During the procedure, ICE was used for monitoring of complications, guidance of trans-septal puncture, monitor the catheter position and tracking ablation lesions. No change in the pericardial space noted throughout the procedure.
Trans-septal Puncture:
Heparin was initiated and infused to maintain appropriate ACT. A J-tipped guidewire was advanced through into the superior vena cava under fluoroscopic and ICE guidance. The Agilis sheath was advanced into the superior vena cava over a guidewire.
The BRK needle was placed inside the Agilis sheath.� The apparatus was withdrawn until it was in contact with the fossa ovalis. The position was adjusted based on fluoroscopy and ultrasound images from ICE. Under fluoroscopic, hemodynamic and ICE
ultrasound guidance, left atrium was cannulated by advancing the needle. Once atrial septum was cannulated, the needle was pulled back and the guide wire was advanced through the needle into the left atrium. The guide wire was advanced into the left
superior pulmonary vein. Both the sheath and the dilator was advanced into the left atrium. The dilator with the needle was withdrawn. Blood was aspirated from the Agilis sheath and arterial blood confirmed. The sheath was flushed. Saline injection
noted into the left atrium on ICE. The waveform of the LA pressure was recorded. The mapping catheter was advanced in the Agilis sheath into the left pulmonary vein.
3D Electroanatomic Mapping:
Using the Sphere 9 Affera catheter advanced through Agilis sheath into the left atrium, an electroanatomic map (EAM) of the left atrium was created using Xekoa� mapping system with [employer] on the Drive software. The map was used for localization of catheter
position and tacking of ablation lesions. The EAM of the left atrium showed a total of 4 PVs with two left and the two right sided pulmonary veins with all electrically connected to the body the LA. It showed scattered scar on the posterior wall of
the LA. The LA was severely dilated in size.
Following the EAM, preparation were made for ablation.
Ablation:
Ablation # 1: Pulmonary vein Isolation:
Pulsed field ablation was performed using an open irrigation, bidirectional, contact sensing, dual energy ablation catheter (Xekoa sphere -9) by completing the circumferential lesions around the left and right pulmonary veins achieving pulmonary
vein isolation.
Cardioversion:
Due to the persistence of atrial fibrillation during the case, the decision was made to proceed with a cardioversion followed by the remainder of the ablation as detailed below. Therefore, a 200J shock was delivered to the chest via Zoll patches
placed with yazdanism of sinus rhythm. The patient remained hemodynamically stable throughout.
Confirmation of the PVI and bidirectional block:
Following achievement of entrance block at the pulmonary veins, pacing from the Sphere 9 affera catheter in each of the four veins at 20 milliamps for 4 milliseconds showed entrance and exit block.
The LA was mapped with The Xekoa� mapping system with Prism-1 software in sinus rhythm confirming the line of block at the ablation lesions lines.
There was extensive scar noted in the posterior wall with slowing of conduction making a substance for reentry flutter.
Ablation # 2: Roof line Formation:
There was a clear channel of electrical activity left in the posterior wall with multiple CFAE and AF areas on the roof and ablation in that area increased the risk of atrial flutter and decision was made to create a roof line to block a slow
conduction. A set of pulsed field ablations were placed on the roof line connecting the left superior pulmonary vein ablation lesions to the right superior pulmonary vein lesions rings.
Ablation # 3: Posterior wall isolation with the Box lesions set Formation:
There was a significant fractionation seen in the posterior wall and LA AF foci along with CFAE made it clear as the posterior wall is critical in maintaining the atrial fibrillation and the decision was made to isolate the posterior wall by
creating a �Box� lesions.
A set of Pulsed field ablations were placed on the floor line connecting the left inferior pulmonary vein ablation lesions to the right inferior pulmonary vein lesions rings.
The sphere 9 in the posterior wall showed entrance block and the pacing from the posterior wall showed no exit from the box lesions confirming the exit block.
Ablation # 4: Posterior wall ablation:
With the box lesion created and block confirmed, the decision was made to ablate the posterior wall severing epicardial connections and decision was made to create the Y ablation on the posterior wall.
A series of ablations were placed connecting the junction of left superior pulmonary vein and the roof line to the junction of right inferior pulmonary vein and the floor line ablating the ganglion plexi next to both antra.
EP study:
Sinus Node Function: The sinus node functions are within acceptable normal range.
Atrioventricular Imer Function: �Normal AV conduction noted.
Procedure End
ICE study was done again that showed no epicardial accumulation. No complications noted.
Following the completion of the EP study, catheters were removed. Protamine 30 mg was given at the end of the procedure and ACT was checked repeatedly. The sheaths were removed and hemostasis achieved with VASCADE and manual compression after
acceptable ACT is achieved.
Left atrial Pressure:
Pre-Procedure: Mean LA pressure was 15mmHg
Post-Procedure: Mean LA pressure was 24mmHg
Post-Procedure: Mean RA pressure was 13mmHg
Fluoro Time:
0.5min
Estimated Blood loss:
<10 cc
Specimens Removed:
None.
Implants / Devices:
None
Urine output:
None
Packs / Drains/ Tubes:
None
Instrument / Sponge Count Correct:
Yes
Complications of the Procedure:
None
Condition of Patient at Time of Transfer:
Hemodynamically stable with no neurological or vascular compromise.
Summary:
��������� Successful atrial fibrillation ablation with circumferential bidirectional line of block at pulmonary venin antra (Pulmonary vein isolation), roof flutter line creation, Posterior wall isolation.
Figures from the Procedure:
Figure 1: The electroanatomic mapping (EAM) of the left atrium with bipolar voltage (purple indicates normal electrical activity with red as no myocardial muscle electric activity indicating a line of block or scar.
Bipolar in AF
sinus post PVI map
[2024-04-18] MEDS: LASIX 40 MG IV (10:05)
--- NOTE | 2024-04-18 13:03 | W.PN.UPDATE ---
Update Note
Progress Note Update
79 yo WM s/p PVI (same day). He denies cp, sob, blas diet, voiding, amb w/o dizziness, EKG SR, R fem site VASCADE scant drainage, soft. He will resume Eliquis tonight. He will start amiodarone 200mg twice daily for 1 week then daily for 3 months. He
did receive lasix 40mg iv and will continue PO lasix 40mg daily for 3 days then as needed. We will decrease metoprolol to 50mg daily. Activity restrictions reviewed. 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 He is for d/c home after 1pm.
== END 2024-04-18 12:59 | disposition home or self-care (01) ==
LOC: CATH 06:07
PROVIDERS: ATTENDING PHYSICIAN Internal Medicine Cardiovascular Disease; FAMILY PHYSICIAN Family Medicine; OTHER PHYSICIAN Internal Medicine Cardiovascular Disease
DX: I48.19 Other persistent atrial fibrillation (principal); Z88.5 Allergy status to narcotic agent; R06.09 Other forms of dyspnea; I42.0 Dilated cardiomyopathy; I44.1 Atrioventricular block, second degree; I44.7 Left bundle-branch block, unspecified; Z79.82 Long term (current) use of aspirin; Z79.84 Long term (current) use of oral hypoglycemic drugs; Z79.899 Other long term (current) drug therapy
CPT/HCPCS: C1769; C1894; C1730; C1766; C1892; C1733; 76937; 85347; 93005; 93656; 93657; C1760

== ENCOUNTER → 2024-05-07 09:22 | Outpatient (REF) | payer MEDICARE, OTHER, SELFPAY ==
[2024-05-07 13:05] LABS: % Basophils 1.5 % (0-2); % Eosinophils 1.3 % (0-6); % Immature Granulocytes 1.5 % (0-0.5); % Lymphocytes 25.6 % (20.5-51.1); % Monocytes 9.3 % (1.7-9.3); % Neutrophils 60.8 % (42.2-75.2); Absolute Basophils 0.1 10^3/uL (0-0.2); Absolute Eosinophils 0.1 10^3/uL (0-0.7); Absolute Immature Granulocytes 0.1 10^3/uL (0-0.05); Absolute Lymphocytes 1.4 10^3/uL (1.2-3.4); Absolute Monocytes 0.5 10^3/uL (0.1-0.6); Absolute Neutrophils 3.4 10^3/uL (1.4-6.5); Hematocrit 43.3 % (39.0-52.0); Hemoglobin 14.4 g/dL (13.0-18.0); Mean Corp Hgb Conc. 33.3 g/dL (33.0-37.0); Mean Corpuscular Hgb 35.8 pg (27.0-31.0); Mean Corpuscular Volume 107.7 fL (80.0-94.0); Mean Platelet Volume 11.5 fL (7.4-10.4); Nucleated Red Blood Cells % 0 % (-); Platelet Count 135 10^3/uL (130-400); Red Blood Cell Count 4.02 10^6/uL (4.70-6.10); Red Cell Dist. Width 13.8 % (11.5-14.5); White Blood Cell Count 5.5 10^3/uL (4.8-10.8)
[2024-05-07 14:05] LABS: ALT (SGPT) 28 U/L (0-50); AST (SGOT) 39 U/L (17-59); Albumin 4.1 g/dl (3.5-5.0); Alkaline Phosphatase 48 U/L (38-126); Blood Urea Nitrogen 21 mg/dl (9-20); Calcium 9.7 mg/dl (8.4-10.2); Carbon Dioxide 29 mmol/L (22-30); Chloride 101 mmol/L (98-107); Glucose 106 mg/dl (70-99); HDL Cholesterol 61 mg/dl; LDL Cholesterol, Calculated 63 mg/dl; Potassium 4.3 mmol/L (3.5-5.1); Sodium 138 mmol/L (135-145); Total Bilirubin 0.9 mg/dl (0.2-1.3); Total Cholesterol 142 mg/dl (50-199); Total Protein 6.6 g/dl (6.3-8.2); Triglyceride 94 mg/dl (10-149); Very Low Density Lipoprotein 18 mg/dl (0-30); eGFR > 60.00
[2024-05-07 14:34] LABS: TSH Reflex To Free T4 4.81 uIU/ml (0.47-4.68)
[2024-05-07 14:53] LABS: Vitamin B12 857 pg/ml (239-931)
[2024-05-07 15:34] LABS: Free T4 1.22 ng/dl (0.78-2.19)
== END ==
LOC: HWLAB 09:22
PROVIDERS: ATTENDING PHYSICIAN Family Medicine
DX: R73.03 Prediabetes (principal); R79.9 Abnormal finding of blood chemistry, unspecified; Z01.89 Encounter for other specified special examinations; Z79.899 Other long term (current) drug therapy
CPT/HCPCS: 36415; 80053; 80061; 82607; 83036; 84439; 84443; 85025

== ENCOUNTER → 2024-05-26 14:06 | Outpatient (REF) | payer MEDICARE, OTHER, SELFPAY | LOC: HWRAD 14:06 | PROVIDERS: ATTENDING PHYSICIAN Physician Assistant Medical | DX: R07.81 Pleurodynia (principal) | CPT/HCPCS: 71101 ==

== ENCOUNTER → 2024-07-07 12:39 | Outpatient (REF) | payer MEDICARE, OTHER, SELFPAY | LOC: HWRAD 12:39 | PROVIDERS: ATTENDING PHYSICIAN Podiatrist Foot & Ankle Surgery; FAMILY PHYSICIAN Family Medicine | DX: M20.41 Other hammer toe(s) (acquired), right foot (principal) | CPT/HCPCS: 73630 ==

== ENCOUNTER 2024-07-09 17:14 | Emergency (ER) | payer MEDICARE, OTHER, SELFPAY ==
[2024-07-09 17:16] VITALS: BP 135/74
[2024-07-09 17:41] LABS: % Basophils 0.9 % (0-2); % Eosinophils 0.3 % (0-6); % Immature Granulocytes 0.6 % (0-0.5); % Lymphocytes 17.1 % (20.5-51.1); % Monocytes 6.5 % (1.7-9.3); % Neutrophils 74.6 % (42.2-75.2); Absolute Basophils 0.1 10^3/uL (0-0.2); Absolute Immature Granulocytes 0.1 10^3/uL (0-0.05); Absolute Lymphocytes 1.3 10^3/uL (1.2-3.4); Absolute Monocytes 0.5 10^3/uL (0.1-0.6); Absolute Neutrophils 5.8 10^3/uL (1.4-6.5); Hematocrit 45.5 % (39.0-52.0); Hemoglobin 15.7 g/dL (13.0-18.0); Mean Corp Hgb Conc. 34.5 g/dL (33.0-37.0); Mean Corpuscular Hgb 35.2 pg (27.0-31.0); Mean Platelet Volume 11.9 fL (7.4-10.4); Nucleated Red Blood Cells % 0 % (-); Platelet Count 150 10^3/uL (130-400); Red Blood Cell Count 4.46 10^6/uL (4.70-6.10); Red Cell Dist. Width 13.2 % (11.5-14.5); White Blood Cell Count 7.8 10^3/uL (4.8-10.8)
[2024-07-09 17:50] VITALS: BP 146/73
[2024-07-09 17:51] LABS: Lactic Acid 1.6 mmol/L (0.7-2.0)
[2024-07-09 17:52] VITALS: BMI 25.6
[2024-07-09 17:52] LABS: ALT (SGPT) 26 U/L (0-50); AST (SGOT) 35 U/L (17-59); Albumin 4.4 g/dl (3.5-5.0); Alkaline Phosphatase 57 U/L (38-126); Blood Urea Nitrogen 19 mg/dl (9-20); Calcium 9.8 mg/dl (8.4-10.2); Carbon Dioxide 31 mmol/L (22-30); Chloride 99 mmol/L (98-107); Glucose 125 mg/dl (70-99); Lipase 41 U/L (23-300); Potassium 4.6 mmol/L (3.5-5.1); Sodium 138 mmol/L (135-145); Total Protein 7.1 g/dl (6.3-8.2); eGFR > 60.00
[2024-07-09 18:00] VITALS: BP 158/71
[2024-07-09 18:03] LABS: Troponin I 0.015 ng/ml
[2024-07-09] MEDS: OMNIPAQUE 50 ML PO (18:30)
[2024-07-09 19:00] VITALS: BP 169/65
[2024-07-09] MEDS: ZOFRAN 4 MG IV (19:27)
[2024-07-09] MEDS: DILAUDID 0.5 MG IV (19:27)
[2024-07-09 20:00] VITALS: BP 129/75
[2024-07-09 22:43] VITALS: BP 131/77
--- NOTE | 2024-07-10 00:41 | ED.GENMED ---
History of Present Illness
General
Chief Complaint: Abdominal Pain
Source: patient
Exam Limitations: none
Time Seen by Provider: 07/09/24 17:58
Nursing documentation reviewed up to this point in time: agreed with
History of Present Illness
History of Present Illness:
Patient to ED with complaint of upper abd. discomfort and belching. Symptoms started today. He denies fever/chills, n/v/d. No prior history of same. Brought to eD by spouse for eval.
Past History
Past History
ED Past Medical History: CAD, HTN, Hypercholesterolemia and Other (kidney stone, sleep apnea, Back and neck pain, LBBB, Bowel obstruction)
ED Past Surgical History: Appendectomy, Cardiac (CABG, Valve replacement), Cholecystectomy, Orthopedic (Right hip replacement), Tonsilectomy and Other (Umbilical hernia repair, Cataracts, Throat and sinus surgery)
Social History
Tobacco: Non-smoker
Alcohol: None
Drug: None
Personal:
Living: with family
Employment: Employed (insurance sales)
Family History
Family History: Hypertension
Review of Systems
Review of Systems
Allergies reviewed?: Yes
All Other Systems: ROS reviewed and negative except as documented in HPI and ROS
Constitutional: Reports no symptoms
EENT: Reports no symptoms
Respiratory: Reports no symptoms
Cardiac: Reports no symptoms
ABD/GI: Reports abdominal pain (upper abd. discomfort. Belching)
Musculoskeletal: Reports no symptoms
Skin: Reports no symptoms
Neurological: Reports no symptoms
Psychiatric: Reports no symptoms
Phy Exam
General Physical Exam
General Presentation: well appearing and no apparent distress
General age: appears stated age
General Skin: warm and dry
General Habitus: normal
General Mental: alert
General Hydration: appears well hydrated
Cardiovascular Exam
Cardiovascular Exam: regular rate/rhythm and no edema
Pulmonary Exam
Pulmonary Exam: lungs clear and no respiratory distress
Gastrointestinal Exam
Gastrointestinal Exam: normal bowel sounds, soft, no organomegaly and no pulsatile mass
Palpation: left upper quadrant: Mild tenderness, left lower quadrant: No tenderness, right upper quadrant: Mild tenderness and right lower quadrant: No tenderness
Musculoskeletal Exam
Musculoskeletal Exam: full ROM and neuro vasc intact
Skin Exam
Skin Exam: normal color, warm/dry and no rash
Psychiatric Exam
Psychiatric Exam: normal mood/affect
Course
Orders/Labs/Results
Orders:
Orders
07/09/24 17:19
Electrocardiogram (*1) Urgent
Reason for Study: Abdominal Pain
07/09/24 17:20
EKG- Treatment ONCE
07/09/24 17:30
Complete Blood Count/With Diff Urgent
Comprehensive Metabolic Panel Urgent
Lactic Acid Urgent
Lipase Urgent
Troponin I Urgent
07/09/24 18:04
CT Abd/pel W Iv And Oral Contr Urgent
Comment:
Reason For Exam: diffuse abd. pain
Iohexol [Omnipaque] See Protocol PO NOW STA
07/09/24 18:56
HYDROmorphone [Dilaudid] 0.5 mg IV NOW STA
Ondansetron Injectable [Zofran] 4 mg IV NOW STA
Abnormal Lab Results
07/09/24
17:30
RBC 4.46 L 10^6/uL
(4.70-6.10)
MCV 102.0 H fL
(80.0-94.0)
MCH 35.2 H pg
(27.0-31.0)
MPV 11.9 H fL
(7.4-10.4)
Abs Immat Gran (auto) 0.1 H 10^3/uL
(0-0.05)
Immature Gran % 0.6 H %
(0-0.5)
Lymphocytes % 17.1 L %
(20.5-51.1)
Carbon Dioxide 31 H mmol/L
(22-30)
Glucose 125 H mg/dl
(70-99)
07/09/24 17:30
07/09/24 17:30
Vital Signs
Initial and Last Documented VS:
Initial Vital Signs
Temp Pulse Resp BP Pulse Ox
98.1 F 70 20 135/74 97
07/09/24 17:16 07/09/24 17:16 07/09/24 17:16 07/09/24 17:16 07/09/24 17:16
Last Documented Vital Signs
Temp Pulse Resp BP Pulse Ox
98.1 F 64 16 131/77 95
07/09/24 17:16 07/09/24 22:45 07/09/24 22:45 07/09/24 22:43 07/09/24 22:45
*Radiology
Radiology exam reviewed: radiology read reviewed
*Pulse Oximetry
Patient hypoxic: no
*Critical Care Note
Total Time (30-74mins, 75-104mins- exclusive of procedures): Not Applicable
Update Note
Update Note:
Patient to ED wt complaint of upper abd. pain and belching. Symptoms started today. Hedenies fever/chills, n/v/d. Eating and drinking. Mild upper abd. discomfort on exam. Labs reviewed. WBC normal. CT results reviewed with him. gastric
distention noted but no outlet obstruction. Mild colitis of ascending and transverse colon. No evidence for infectious process. Will recommend holding off on antibiotics. He remains comfortable. Will discharge home and he will follow up with
PCP. givne instructions on s/s to return to ED and he is agreeable to plan. Case discussed with Dr. Fields who agrees with plan
ED Attending Note
-
Portions of this chart may have been created with voice recognition software.� Occasional wrong word or��sound alike� substitutions may have occurred due to the inherent limitations of voice recognition software.
Discharge Plan
Departure
Patient Disposition: Home (Routine Discharge)
Date of Disposition: 07/09/24
Time of Disposition: 22:42
Patient with high blood pressure during this ER visit?: No
Condition: Good
Covid-19: Not Applicable
Discharge Problem:
Abdominal pain, Belching
Instructions: Abdominal Pain
Prescriptions:
No Action
atorvastatin 40 mg Tablet
40 mg PO DAILY
Stool Softener 50 mg Capsule
50 mg PO DAILY
spironolactone 25 mg Tablet
25 mg PO DAILY
pantoprazole 40 mg Tablet,Delayed Release (Dr/Ec)
40 mg PO DAILY
cholecalciferol (vitamin D3) [D3-5000] 125 mcg (5,000 unit) Capsule
125 mcg PO DAILY
coQ10 (ubiquinol) 100 mg Capsule
100 mg PO DAILY
Probiotic 10 billion cell Capsule
10,000 mmu cells PO DAILY
Eliquis 5 mg Tablet
5 mg PO BID
dapagliflozin propanediol [Farxiga] 10 mg Tablet
10 mg PO DAILY
mecobalamin (vitamin B12) [B12 Active] 1,000 mcg Tablet,Chewable
1,000 mcg PO DAILY
cannabidiol 100 mg/mL Solution
100 mg PO DAILY PRN (Reason: back pain)
amiodarone 200 mg tablet
200 mg PO DAILY Qty: 120 0RF
Rx Instructions:
Take Amiodarone twice daily for 1 week then daily for 3 months
metoprolol succinate 100 mg Tablet Extended Release 24 Hr
50 mg PO QPM Qty: 0 0RF
furosemide [Lasix] 40 mg tablet
40 mg PO DAILY Qty: 30 0RF
Rx Instructions:
Take daily for 3 days then PRN (as needed for heart failure)
Referrals:
Bernie Monsalve MD [Family Provider] - Tomorrow
Activity Restrictions/Additional Instructions:
Return to the emergency department immediately for any changes in/worsening of your symptoms
Interventions
Interventions:
*Risk Screen - Suicide Last Done: 07/09/24 17:52
*General Assessment Last Done: 07/09/24 17:16
*Neglect/Abuse Screening Last Done: 07/09/24 17:52
*ED- Fall Risk Assessment Last Done: 07/09/24 17:52
*ED COVID-19 Vaccine History Last Done: 07/09/24 17:52
*Nursing Disposition Last Done: 07/09/24 22:47
DU-Wzmuyl-Kzsmmpnmee Assessment Last Done: 07/09/24 17:52
Discharge Date and Time
Discharge Date/Time: 07/09/24 22:51
Print Language: J[place]
== END 2024-07-09 22:51 | disposition home or self-care (01) ==
LOC: EMR 17:14
PROVIDERS: EMERGENCY PHYSICIAN Emergency Medicine; FAMILY PHYSICIAN Family Medicine
DX: K52.9 Noninfective gastroenteritis and colitis, unspecified (principal); E78.00 Pure hypercholesterolemia, unspecified; I25.10 Atherosclerotic heart disease of native coronary artery without angina pectoris; I10 Essential (primary) hypertension; G47.30 Sleep apnea, unspecified; Z95.2 Presence of prosthetic heart valve; Z95.1 Presence of aortocoronary bypass graft; Z90.49 Acquired absence of other specified parts of digestive tract
CPT/HCPCS: 96374; 96375; 99284; 74177; 80053; 83605; 83690; 84484; 85025; 93005; Q9967

== ENCOUNTER → 2024-08-21 10:10 | Outpatient (REF) | payer MEDICARE, OTHER, SELFPAY ==
--- NOTE | 2024-08-21 11:22 | CARDSERVLU ---
Echocardiogram with Lumason completed after protocol screening completed. Allergies verified.
Patent IV site: 22 g angio inserted in LAC without incident, 1st attempt.
IV site flushed with 0.9% NaCl pre and post administration.
Diluted bolus method utilized to enhance visualization of ventricular sharma.
Total volume given: 2.5 mL
Patient tolerated all procedures well without complications.
IV d/c'd and bandage applied after pressure held.
== END ==
LOC: RCS 10:10
PROVIDERS: ATTENDING PHYSICIAN Nurse Practitioner; FAMILY PHYSICIAN Family Medicine
DX: I42.0 Dilated cardiomyopathy (principal)
CPT/HCPCS: 93306; Q9950

== ENCOUNTER → 2024-09-17 11:35 | Outpatient (REF) | payer MEDICARE, OTHER, SELFPAY | LOC: HWRAD 11:35 | PROVIDERS: ATTENDING PHYSICIAN Family Medicine | DX: M54.50 Low back pain, unspecified (principal); G89.29 Other chronic pain; M54.2 Cervicalgia | CPT/HCPCS: 72050; 72074; 72110 ==

== ENCOUNTER → 2024-11-11 09:16 | Outpatient (REF) | payer MEDICARE, OTHER, SELFPAY ==
[2024-11-11 13:15] LABS: Glycohemoglobin (HgbA1c) 6.2 % (4.0-5.6)
[2024-11-11 14:53] LABS: ALT (SGPT) 30 U/L (0-50); AST (SGOT) 29 U/L (17-59); Albumin 3.8 g/dl (3.5-5.0); Alkaline Phosphatase 38 U/L (38-126); Blood Urea Nitrogen 21 mg/dl (9-20); Calcium 9.3 mg/dl (8.4-10.2); Carbon Dioxide 26 mmol/L (22-30); Chloride 105 mmol/L (98-107); Glucose 114 mg/dl (70-99); Potassium 4.5 mmol/L (3.5-5.1); Sodium 135 mmol/L (135-145); Total Protein 6.2 g/dl (6.3-8.2); eGFR > 60.00
== END ==
LOC: HWLAB 09:16
PROVIDERS: ATTENDING PHYSICIAN Family Medicine
DX: E11.69 Type 2 diabetes mellitus with other specified complication (principal); Z79.899 Other long term (current) drug therapy; Z01.89 Encounter for other specified special examinations; R79.9 Abnormal finding of blood chemistry, unspecified
CPT/HCPCS: 36415; 80053; 83036; 84443

== ENCOUNTER → 2024-11-25 06:51 | Outpatient (REF) | payer MEDICARE, OTHER, SELFPAY | LOC: PAVMRI 06:51 | PROVIDERS: ATTENDING PHYSICIAN Physician Assistant Surgical; FAMILY PHYSICIAN Family Medicine | DX: M54.2 Cervicalgia (principal); M54.12 Radiculopathy, cervical region | CPT/HCPCS: 72141 ==

== ENCOUNTER → 2024-11-28 09:53 | Outpatient (REF) | payer MEDICARE, OTHER, SELFPAY | LOC: RAD 09:53 | PROVIDERS: ATTENDING PHYSICIAN Podiatrist Foot & Ankle Surgery; FAMILY PHYSICIAN Family Medicine; REFERRING PHYSICIAN Internal Medicine Cardiovascular Disease | DX: I73.9 Peripheral vascular disease, unspecified (principal); I73.89 Other specified peripheral vascular diseases | CPT/HCPCS: 93922; 93925 ==